=== PATIENT | male | born 1995 | race Caucasian/White ===

== ENCOUNTER 2017-11-01 14:54 | Emergency (ER) | payer OTHER ==
[2017-11-01] MEDS ORDERED: LET GEL TOPICAL 1 EA SYR TP ONE (15:11)
[2017-11-01] MEDS ORDERED: NS 1,000 ML IV ONE (15:23)
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
[2017-11-01] MEDS ORDERED: KETOROLAC 15 MG/1 ML SDV IVP ONE (16:19)
[2017-11-01 16:39] LABS: PLATELET COUNT 250 10^3/uL (150-400)
[2017-11-01] MEDS ORDERED: SKIN ADHESIVE (DERMABOND) 1 EACH TP ONE (17:20)
--- NOTE | 2017-11-01 18:14 | CPEKG ---
Heart Rate: 76 RR Interval: 789 P-R Interval: 144 QRSD Interval: 104 QT Interval: 404 QTC Interval: 455 P [place]: 41 QRS [place]: 58 T Wave [place]: -9 EKG Severity - ABNORMAL ECG - EKG Impression: SINUS RHYTHM EKG Impression: VENTRICULAR BIGEMINY EKG Impression: ABNORMAL T, CONSIDER ISCHEMIA, INFERIOR LEADS Electronically Signed By: Maddison Cook 01-Nov-2017 20:48:41
[2017-11-01 18:37] VITALS: BP 143/72
== END 2017-11-01 19:07 | disposition home or self-care (01) ==
DX: S80.212A Abrasion, left knee, initial encounter (principal); S00.93XA Contusion of unspecified part of head, initial encounter; E86.9 Volume depletion, unspecified; V13.9XXA Unspecified pedal cyclist injured in collision with car, pick-up truck or van in traffic accident, initial encounter
CPT/HCPCS: 96374; J1885